=== PATIENT | male | born 1955 | race Caucasian/White ===

== ENCOUNTER 2016-08-12 10:33 | Emergency (ER) | payer SELFPAY ==
[~2016-08-12] VITALS: Ht 175.3 cm; Wt 77.1 kg
[2016-08-12 10:44] VITALS: BP 95/63
[2016-08-12] MEDS ORDERED: KETOROLAC TROMETH 60MG/2ML VIAL IM ONE (11:30)
== END 2016-08-12 11:59 | disposition home or self-care (01) ==
LOC: ER 10:33
DX: M50.321 Other cervical disc degeneration at C4-C5 level (principal); M54.12 Radiculopathy, cervical region; Z76.0 Encounter for issue of repeat prescription; G89.29 Other chronic pain
CPT/HCPCS: 72040; 96372; 99284; J1885